=== PATIENT | male | born 1940 ===

== ENCOUNTER 2016-12-18 08:47 | Day surgery (SDC) | payer MEDICARE ==
[2016-12-18] MEDS ORDERED: Lactated Ringer's 500 ML IV ONE (09:03)
[2016-12-18] MEDS ORDERED: Propofol 10 mg/ml Inj (20 ML) ONE (09:19)
[2016-12-18] MEDS ORDERED: Etomidate 20 mg/10ml Inj IV ONE (09:19)
[2016-12-18] MEDS ORDERED: Lidocaine 2% MPF (5 ml) Inj ONE (09:20)
[2016-12-18 09:46] VITALS: RESP 16
[2016-12-18 09:59] VITALS: BP 116/63; PULSE 57; TEMP 98.2; O2SAT 100
== END 2016-12-18 10:11 | disposition home or self-care (01) ==
LOC: H.ENDO 08:47
PROVIDERS: ATTEND Internal Medicine Gastroenterology
DX: Z12.11 Encounter for screening for malignant neoplasm of colon (principal); E78.5 Hyperlipidemia, unspecified; I10 Essential (primary) hypertension; K64.8 Other hemorrhoids
CPT/HCPCS: 45378; 82948; J2704; J7120

== ENCOUNTER 2017-04-09 09:04 | Day surgery (SDC) | payer MEDICARE ==
[2017-04-09] MEDS ORDERED: Lactated Ringer's 1,000 ML IV ONE (10:22)
[2017-04-09] MEDS ORDERED: Propofol 10 mg/ml Inj (20 ML) ONE (10:25)
[2017-04-09] MEDS ORDERED: Midazolam 2 MG/2 ML VIAL ONE (10:25)
[2017-04-09] MEDS ORDERED: Lidocaine PF 2% (5 ml) Inj (For Cardiac Arrhy) IV ONE (10:25)
[2017-04-09 10:51] VITALS: RESP 16
[2017-04-09 11:09] VITALS: BP 116/69; PULSE 66; TEMP 97.7; O2SAT 100
== END 2017-04-09 11:09 | disposition home or self-care (01) ==
LOC: H.ENDO 09:04
PROVIDERS: ATTEND Internal Medicine Gastroenterology
DX: R10.13 Epigastric pain (principal); D64.9 Anemia, unspecified; F17.200 Nicotine dependence, unspecified, uncomplicated; E11.9 Type 2 diabetes mellitus without complications; I10 Essential (primary) hypertension; K21.9 Gastro-esophageal reflux disease without esophagitis; K31.9 Disease of stomach and duodenum, unspecified
CPT/HCPCS: 43239; 82948; 88305; J2250; J2704; J7120